=== PATIENT | male | born 1960 | race Caucasian/White ===

== ENCOUNTER 2021-06-02 04:37 | Emergency (ER) | payer MEDICAID ==
[~2021-06-02] VITALS: Ht 170.2 cm; Wt 81.6 kg
[2021-06-02 04:48] VITALS: BP 125/85
[2021-06-02 05:05] LABS: BASOPHILS % (AUTO) 0.8 % (0.0-5.0); EOSINOPHILS % (AUTO) 3.3 % (0.0-8.0); HEMATOCRIT 41.2 % (42-54); MEAN CORPUSCULAR HEMOGLOBIN 29.3 pg (27.0-33.0); MEAN CORPUSCULAR VOLUME 86.2 fL (79-99); MONOCYTES % (AUTO) 15.1 % (3.0-13.0); NEUTROPHILS % (AUTO) 33.5 % (40.0-77.0); PLATELET COUNT (AUTO) 299 K/uL (130-400); RED BLOOD CELL COUNT(AUTO) 4.78 MIL/uL (4.50-6.20); RED CELL DISTRIBUTION WIDTH 12.1 % (11.0-15.5)
[2021-06-02 05:21] LABS: B-TYPE NATRIURETIC PEPTIDE < 5 pg/mL (0-100)
[2021-06-02 05:26] LABS: CREATININE 1.1 mg/dL (0.5-1.5); POTASSIUM 3.7 mmol/L (3.5-5.1)
[2021-06-02 05:30] LABS: ALBUMIN 3.3 g/dL (3.5-5.0); BILIRUBIN,TOTAL 0.4 mg/dL (0.2-1.0); MAGNESIUM 2.2 mg/dL (1.80-2.40); TOTAL PROTEIN, SERUM 7.1 g/dL (6.0-8.3)
== END 2021-06-02 06:03 | disposition left against medical advice (07) ==
LOC: EDH 04:37
DX: R07.89 Other chest pain (principal); Z88.0 Allergy status to penicillin
CPT/HCPCS: 36415; 71045; 80053; 82550; 83735; 83880; 84484; 85025; 85378; 93005

== ENCOUNTER 2022-03-10 05:32 | Emergency (ER) | payer MEDICAID ==
[~2022-03-10] VITALS: Ht 170.2 cm; Wt 80.3 kg
[2022-03-10] MEDS ORDERED: IBUP-1493 PO (06:09)
[2022-03-10 06:15] VITALS: BP 134/86
== END 2022-03-10 06:29 | disposition home or self-care (01) ==
LOC: EDH 05:32
DX: S46.002A Unspecified injury of muscle(s) and tendon(s) of the rotator cuff of left shoulder, initial encounter (principal); R07.89 Other chest pain; M25.512 Pain in left shoulder; K21.9 Gastro-esophageal reflux disease without esophagitis; F41.9 Anxiety disorder, unspecified; Z88.0 Allergy status to penicillin; X58.XXXA Exposure to other specified factors, initial encounter; Y93.89 Activity, other specified; Y92.89 Other specified places as the place of occurrence of the external cause; Y99.8 Other external cause status
CPT/HCPCS: 93005

== ENCOUNTER 2022-06-22 15:16 | Emergency (ER) | payer MEDICAID ==
[~2022-06-22] VITALS: Ht 170.2 cm; Wt 81.6 kg
[~2022-06-22 15:16] MED LIST: IBUP-1493 PO
[2022-06-22 15:56] VITALS: BP 112/80
[2022-06-22] MEDS ORDERED: PERM60CR4 TP (16:04)
== END 2022-06-22 16:13 | disposition home or self-care (01) ==
LOC: EDH 15:16
DX: B86 Scabies (principal); Z88.0 Allergy status to penicillin; F41.9 Anxiety disorder, unspecified
CPT/HCPCS: 99282

== ENCOUNTER 2022-06-30 20:25 | Emergency (ER) | payer MEDICAID ==
[~2022-06-30] VITALS: Ht 170.2 cm; Wt 83.0 kg
[~2022-06-30 20:25] MED LIST changes: +PERM60CR4 TP
[2022-06-30 21:40] VITALS: BP 132/83
[2022-06-30] MEDS ORDERED: PERM60CR4 TP (22:07)
== END 2022-06-30 22:30 | disposition home or self-care (01) ==
LOC: EDH 20:25
DX: B86 Scabies (principal); L29.9 Pruritus, unspecified; Z88.0 Allergy status to penicillin; Z79.899 Other long term (current) drug therapy
CPT/HCPCS: 99282

== ENCOUNTER 2022-08-14 18:18 | Emergency (ER) | payer MEDICAID ==
[~2022-08-14] VITALS: Ht 170.2 cm; Wt 81.6 kg
[2022-08-14 20:13] VITALS: BP 128/79
[2022-08-14] MEDS ORDERED: TETANUS/DIPHTHERIA TOXOID [ADULT] 0.5 ML VIAL IM ONE ×2 (20:18→20:30)
== END 2022-08-14 20:25 | disposition home or self-care (01) ==
LOC: EDH 18:18
DX: S69.81XA Other specified injuries of right wrist, hand and finger(s), initial encounter (principal); Z79.899 Other long term (current) drug therapy; Z88.0 Allergy status to penicillin; W45.8XXA Other foreign body or object entering through skin, initial encounter; Y93.89 Activity, other specified; Y92.89 Other specified places as the place of occurrence of the external cause; Y99.8 Other external cause status
CPT/HCPCS: 90471; 90714

== ENCOUNTER 2022-11-02 04:21 | Emergency (ER) | payer MEDICAID ==
[~2022-11-02] VITALS: Ht 170.2 cm; Wt 82.1 kg
[2022-11-02] MEDS ORDERED: KETOROLAC 30MG VIAL (30MG/ML) IVP ONE (04:30)
[2022-11-02] MEDS ORDERED: DIAZEPAM 5 MG/ML 2 ML SYG IVP ONE (04:30)
[2022-11-02] MEDS ORDERED: ASPIRIN 325MG TAB PO ONE (04:30)
[2022-11-02] MEDS ORDERED: FAMOTIDINE 20MG VIAL IV ONE (04:30)
[2022-11-02 04:46] LABS: BASOPHILS % (AUTO) 0.7 % (0.0-5.0); EOSINOPHILS % (AUTO) 4.9 % (0.0-8.0); HEMATOCRIT 41.1 % (42-54); LYMPHOCYTES % (AUTO) 52.2 % (21.0-51.0); MEAN CORPUSCULAR HEMOGLOBIN 29.4 pg (27.0-33.0); MEAN CORPUSCULAR HGB CONC 34.3 g/dL (32.0-36.0); MEAN CORPUSCULAR VOLUME 85.6 fL (79-99); MONOCYTES % (AUTO) 13.5 % (3.0-13.0); NEUTROPHILS % (AUTO) 28.5 % (40.0-77.0); PLATELET COUNT (AUTO) 237 K/uL (130-400); RED CELL DISTRIBUTION WIDTH 12.1 % (11.0-15.5); WHITE BLOOD COUNT (AUTO) 4.5 K/uL (4.8-10.8)
[2022-11-02 04:54] LABS: CREATININE 1.2 mg/dL (0.5-1.5); POTASSIUM 3.7 mmol/L (3.5-5.1)
[2022-11-02 04:59] LABS: ALBUMIN 3.4 g/dL (3.5-5.0); TOTAL PROTEIN, SERUM 6.9 g/dL (6.0-8.3)
[2022-11-02] MEDS ORDERED: MELO-106 PO (05:38)
[2022-11-02] MEDS ORDERED: CYCL10TA16 PO (05:38)
[2022-11-02 05:58] VITALS: BP 143/89
== END 2022-11-02 05:59 | disposition home or self-care (01) ==
LOC: EDH 04:21
DX: S46.092A Other injury of muscle(s) and tendon(s) of the rotator cuff of left shoulder, initial encounter (principal); Z79.899 Other long term (current) drug therapy; Z98.890 Other specified postprocedural states; Z88.0 Allergy status to penicillin; X58.XXXA Exposure to other specified factors, initial encounter; Y93.89 Activity, other specified; Y92.89 Other specified places as the place of occurrence of the external cause; Y99.8 Other external cause status
CPT/HCPCS: 36415; 71045; 73030; 80053; 84484; 85025; 93005